=== PATIENT | female | born 1960 | race Caucasian/White ===

== ENCOUNTER 2019-01-29 21:51 | Emergency (ER) | payer BC ==
[2019-01-29 22:05] VITALS: RESP 18
[2019-01-29] MEDS ORDERED: SODIUM CHLORIDE 0.9% 500 ML IV STA (22:27)
--- NOTE | 2019-01-29 22:29 | ED ---
General Adult HPI - General Chief complaint: Abdominal Pain Stated complaint: Abd pain Time Seen by Provider: 01/29/19 22:11 Source: patient Mode of arrival: ambulatory Limitations: no limitations - History of Present Illness Initial comments: Dictation was produced using [employer] dictation software. please excuse any grammatical, word or spelling errors. Chief Complaint: 58-year-old female presents with abdominal cramping today. History of Present Illness: 50-year-old female presents with abdominal cramping since 2 PM today. Patient's been fighting a cold for the last 5 weeks. Patient states that she had a normal breakfast. Approximately 2 PM she began feeling intermittent episodes of abdominal cramping. She states that it's worse in her epigastric area. Patient complains of nausea no vomiting. She states she does have regular bowel movements. Denies any fever, chills or night sweats. Denies any exacerbating or mitigating factors. Extremity tender tonight had a couple bites over did not have an appetite The ROS documented in this emergency department record has been reviewed and confirmed by me. Those systems with pertinent positive or negative responses have been documented in the HPI. All other systems are other negative and/or noncontributory. PHYSICAL EXAM: General Impression: Alert and oriented x3, not in acute distress HEENT: Normocephalic atraumatic, extra-ocular movements intact, pupils equal and reactive to light bilaterally, mucous membranes moist. Cardiovascular: Heart regular rate and rhythm, S1&S2 audible, no murmurs, rubs or gallops Chest: Lungs clear to auscultation bilaterally, no rhonchi, no wheeze, no rales Abdomen: Hyperactive bowel sounds, diffuse abdominal tenderness worse in the epigastric area. No pain with deep palpation of left lower quadrant. Musculoskeletal: Pulses present and equal in all extremities, no peripheral edema Motor: no focal deficits noted Neurological: CN II-XII grossly intact, no focal motor or sensory deficits noted Skin: Intact with no visualized rashes Psych: Normal affect and mood ED course: 58-year-old female presents with chief complaint of abdominal cramping. Vital signs upon arrival are within acceptable limits.Laboratory evaluation obtained. CBC, cardiac panel, metabolic panel is unremarkable. Patient has potassium measurement of 5.3 with slight hemolysis. Urinalysis is unremarkable. KUB x-ray shows no acute processes. At this point there is no signs of surgical abdomen. Patient reevaluated and feels well after intravenous fluids. Patient given prescription for Bentyl and referral to gastroenterology. Patient t agreeable to disposition and plan. EKG interpretation: Ventricular rate 71, normal sinus rhythm, WV interval 1:30, QRS 68, QTC 419. No WV prolongation, no QTC prolongation, no ST or T-wave changes noted. Overall, this EKG is unremarkable - Related Data Previous Rx's Medication Instructions Recorded Dicyclomine [Bentyl] 10 mg PO TID PRN #20 capsule 01/30/19 Allergies Allergy/AdvReac Type Severity Reaction Status Date / Time No Known Allergies Allergy Verified 01/29/19 22:05 Review of Systems ROS Statement: Those systems with pertinent positive or pertinent negative responses have been documented in the HPI. ROS Other: All systems not noted in ROS Statement are negative. Past Medical History Past Medical History: Coronary Artery Disease (CAD), Chest Pain / Angina, Heart Failure, Hyperlipidemia, Hypertension History of Any Multi-Drug Resistant Organisms: None Reported Past Surgical History: Bowel Resection, Cholecystectomy, Ear Surgery, Heart Catheterization, Heart Catheterization With Stent Additional Past Surgical History / Comment(s): cyst removal, left fourth digit amputation Past Psychological History: No Psychological Hx Reported Smoking Status: Never smoker Past Alcohol Use History: None Reported Past Drug Use History: None Reported General Exam Limitations: no limitations Course Vital Signs 01/29/19 21:59 Temperature 97.7 F Pulse Rate 66 Respiratory 18 Rate Blood Pressure 124/59 O2 Sat by Pulse 96 Oximetry Medical Decision Making - Lab Data Result diagrams: 01/29/19 22:30 01/29/19 22:30 Lab Results 01/29/19 01/29/19 01/29/19 Range/Units 22:30 22:30 22:30 WBC 8.5 (3.8-10.6) k/uL RBC 4.80 (3.80-5.40) m/uL Hgb 12.5 (11.4-16.0) gm/dL Hct 36.6 (34.0-46.0) % MCV 76.3 L (80.0-100.0) fL MCH 26.0 (25.0-35.0) pg MCHC 34.1 (31.0-37.0) g/dL RDW 16.5 H (11.5-15.5) % Plt Count 176 (150-450) k/uL Neutrophils % 79 % Lymphocytes % 13 % Monocytes % 6 % Eosinophils % 1 % Basophils % 0 % Neutrophils # 6.8 (1.3-7.7) k/uL Lymphocytes # 1.1 (1.0-4.8) k/uL Monocytes # 0.5 (0-1.0) k/uL Eosinophils # 0.1 (0-0.7) k/uL Basophils # 0.0 (0-0.2) k/uL Anisocytosis Slight Microcytosis Slight PT (9.0-12.0) sec INR (<1.2) Sodium 139 (137-145) mmol/L Potassium 5.3 H (3.5-5.1) mmol/L Chloride 107 (98-107) mmol/L Carbon Dioxide 25 (22-30) mmol/L Anion Gap 7 mmol/L BUN 18 H (7-17) mg/dL Creatinine 0.89 (0.52-1.04) mg/dL Est GFR (CKD-EPI)AfAm 83 (>60 ml/min/1.73 sqM) Est GFR (CKD-EPI)NonAf 72 (>60 ml/min/1.73 sqM) Glucose 148 H (74-99) mg/dL Plasma Lactic Acid Otto 0.9 (0.7-2.0) mmol/L Calcium 8.7 (8.4-10.2) mg/dL Total Bilirubin 0.8 (0.2-1.3) mg/dL AST 33 (14-36) U/L ALT 21 (9-52) U/L Alkaline Phosphatase 86 (38-126) U/L Total Protein 6.6 (6.3-8.2) g/dL Albumin 3.3 L (3.5-5.0) g/dL Lipase 268 (23-300) U/L Urine Color Urine Appearance (Clear) Urine pH (5.0-8.0) Ur Specific [place] (1.001-1.035) Urine Protein (Negative) Urine Glucose (UA) (Negative) Urine Ketones (Negative) Urine Blood (Negative) Urine Nitrite (Negative) Urine Bilirubin (Negative) Urine Urobilinogen (<2.0) mg/dL Ur Leukocyte Esterase (Negative) Urine RBC (0-5) /hpf Urine WBC (0-5) /hpf Ur Squamous Epith Cells (0-4) /hpf Urine Bacteria (None) /hpf Hyaline Casts (0-2) /lpf Urine Mucus (None) /hpf 01/29/19 01/29/19 Range/Units 22:30 23:24 WBC (3.8-10.6) k/uL RBC (3.80-5.40) m/uL Hgb (11.4-16.0) gm/dL Hct (34.0-46.0) % MCV (80.0-100.0) fL MCH (25.0-35.0) pg MCHC (31.0-37.0) g/dL RDW (11.5-15.5) % Plt Count (150-450) k/uL Neutrophils % % Lymphocytes % % Monocytes % % Eosinophils % % Basophils % % Neutrophils # (1.3-7.7) k/uL Lymphocytes # (1.0-4.8) k/uL Monocytes # (0-1.0) k/uL Eosinophils # (0-0.7) k/uL Basophils # (0-0.2) k/uL Anisocytosis Microcytosis PT 11.0 (9.0-12.0) sec INR 1.0 (<1.2) Sodium (137-145) mmol/L Potassium (3.5-5.1) mmol/L Chloride (98-107) mmol/L Carbon Dioxide (22-30) mmol/L Anion Gap mmol/L BUN (7-17) mg/dL Creatinine (0.52-1.04) mg/dL Est GFR (CKD-EPI)AfAm (>60 ml/min/1.73 sqM) Est GFR (CKD-EPI)NonAf (>60 ml/min/1.73 sqM) Glucose (74-99) mg/dL Plasma Lactic Acid Otto (0.7-2.0) mmol/L Calcium (8.4-10.2) mg/dL Total Bilirubin (0.2-1.3) mg/dL AST (14-36) U/L ALT (9-52) U/L Alkaline Phosphatase (38-126) U/L Total Protein (6.3-8.2) g/dL Albumin (3.5-5.0) g/dL Lipase (23-300) U/L Urine Color Yellow Urine Appearance Clear (Clear) Urine pH 5.5 (5.0-8.0) Ur Specific [place] 1.019 (1.001-1.035) Urine Protein Negative (Negative) Urine Glucose (UA) Negative (Negative) Urine Ketones Negative (Negative) Urine Blood Negative (Negative) Urine Nitrite Negative (Negative) Urine Bilirubin Negative (Negative) Urine Urobilinogen <2.0 (<2.0) mg/dL Ur Leukocyte Esterase Small H (Negative) Urine RBC 1 (0-5) /hpf Urine WBC 4 (0-5) /hpf Ur Squamous Epith Cells 2 (0-4) /hpf Urine Bacteria Rare H (None) /hpf Hyaline Casts 4 H (0-2) /lpf Urine Mucus Rare H (None) /hpf Disposition Clinical Impression: Abdominal cramping Disposition: HOME SELF-CARE Condition: Good Instructions (If sedation given, give patient instructions): Acute Abdominal Pain (ED) Prescriptions: Dicyclomine [Bentyl] 10 mg PO TID PRN #20 capsule PRN Reason: abdominal cramps Is patient prescribed a controlled substance at d/c from ED?: No Referrals: Filemon Dunlap MD [STAFF PHYSICIAN] - 1-2 days Time of Disposition: 00:12
--- NOTE | 2019-01-29 23:01 | XR ---
EXAM: XR Abdomen, 1 View CLINICAL HISTORY: ITS.REASON XR Reason: abdominal pain TECHNIQUE: Frontal supine view of the abdomen/pelvis. COMPARISON: No relevant prior studies available. IMPRESSION: No bowel obstruction. Paucity of bowel gas overall. No free air.
[2019-01-29 23:06] LABS: Anisocytosis Slight; Basophils % (A) 0 %; Eosinophils # (A) 0.1 k/uL (0-0.7); Eosinophils % (A) 1 %; HCT 36.6 % (34.0-46.0); HGB 12.5 gm/dL (11.4-16.0); Lymphocytes # (A) 1.1 k/uL (1.0-4.8); Lymphocytes % (A) 13 %; MCHC 34.1 g/dL (31.0-37.0); MCV 76.3 fL (80.0-100.0); Mean Platelet Volume 10.4; Microcytosis Slight; Monocytes # (A) 0.5 k/uL (0-1.0); Monocytes % (A) 6 %; Neutrophils # (A) 6.8 k/uL (1.3-7.7); Neutrophils % (A) 79 %; Platelet Count 176 k/uL (150-450); RDW 16.5 % (11.5-15.5); WBC 8.5 k/uL (3.8-10.6)
[2019-01-29 23:14] LABS: Calcium 8.7 mg/dL (8.4-10.2); Total Bilirubin 0.8 mg/dL (0.2-1.3)
[2019-01-29 23:20] LABS: Albumin 3.3 g/dL (3.5-5.0); Potassium 5.3 mmol/L (3.5-5.1); Total Protein 6.6 g/dL (6.3-8.2)
[2019-01-29 23:48] LABS: Appearance,Urine Clear (Clear); Bacteria,Urine Rare /hpf; Bilirubin,Urine Negative (Negative); Blood,Urine Negative (Negative); Color,Urine Yellow; Glucose,Urine (UA) Negative (Negative); Hyaline Casts,Urine 4 /lpf (0-2); Ketones,Urine Negative (Negative); Leukocyte Esterase,Urine Small (Negative); Mucus,Urine Rare /hpf; Nitrite,Urine Negative (Negative); PH, Urine 5.5 (5.0-8.0); Protein,Urine Negative (Negative); RBC,Urine 1 /hpf (0-5); Specific Gravity,Urine 1.019 (1.001-1.035); Squamous Epithelial Cell,Urine 2 /hpf (0-4); Urobilinogen,Urine <2.0 mg/dL (<2.0); WBC,Urine 4 /hpf (0-5)
[2019-01-30 00:44] VITALS: BP 143/88; PULSE 78; TEMP 98.9
== END 2019-01-30 00:44 | disposition home or self-care (01) ==
LOC: EC 21:51
DX: R10.9 Unspecified abdominal pain (principal); R11.0 Nausea; I25.10 Atherosclerotic heart disease of native coronary artery without angina pectoris; Z90.49 Acquired absence of other specified parts of digestive tract; Z95.5 Presence of coronary angioplasty implant and graft; Z98.890 Other specified postprocedural states
CPT/HCPCS: 36415; 74018; 80053; 81001; 83605; 83690; 85025; 85610; 93005; 96360; 99284

== ENCOUNTER 2021-05-30 12:11 | Emergency (ER) | payer BC ==
[2021-05-30 12:15] VITALS: BP 157/87; PULSE 62; RESP 18; TEMP 97.4
[2021-05-30] MEDS ORDERED: LIDOCAINE 1% INJ 10MG/ML (20 ML MDV) SQ STA (12:53)
[2021-05-30] MEDS ORDERED: GELATIN SPONGE,ABSORB (LARGE) 1 EACH SPONGE TOPICAL STA (12:54)
[2021-05-30] MEDS ORDERED: DIPH,PERTUS(ACELL)TETVAC-LF 0.5 ML VIAL IM ONE (12:54)
--- NOTE | 2021-05-30 14:56 | ED ---
Wound/Laceration HPI - General Chief Complaint: Wound/Laceration Stated Complaint: leg injury Time Seen by Provider: 05/30/21 12:32 Source: patient, RN notes reviewed Mode of arrival: wheelchair Limitations: physical limitation - History of Present Illness Initial Comments: Patient is a 60-year-old female that presents to the emergency room with a left sorensen laceration from a cement block falling on her. She notes that she is not up-to-date on her tetanus vaccine. She notes that she is bleeding pretty well. She notes that she tried rinsing off at home in the bath tub but it kept bleeding so he can emergency room to get. Patient did not appear to be any distress while sitting up in bed during exam and interview. She denied any other issues or complaints at this time. She denied any chest pain shortness of breath headache nausea vomiting diarrhea constipation fever fatigue chills. - Related Data Previous Rx's Medication Instructions Recorded Dicyclomine [Bentyl] 10 mg PO TID PRN #20 capsule 01/30/19 Cephalexin [Keflex] 500 mg PO Q6HR #40 cap 05/30/21 Allergies Allergy/AdvReac Type Severity Reaction Status Date / Time No Known Allergies Allergy Verified 05/30/21 12:15 Review of Systems ROS Statement: Those systems with pertinent positive or pertinent negative responses have been documented in the HPI. ROS Other: All systems not noted in ROS Statement are negative. Past Medical History Past Medical History: Coronary Artery Disease (CAD), Chest Pain / Angina, Heart Failure, Hyperlipidemia, Hypertension History of Any Multi-Drug Resistant Organisms: None Reported Past Surgical History: Bowel Resection, Cholecystectomy, Ear Surgery, Heart Catheterization, Heart Catheterization With Stent Additional Past Surgical History / Comment(s): cyst removal, left fourth digit amputation Past Psychological History: No Psychological Hx Reported Smoking Status: Never smoker Past Alcohol Use History: None Reported Past Drug Use History: None Reported General Exam Limitations: physical limitation General appearance: alert, in no apparent distress Head exam: Present: atraumatic, normocephalic, normal inspection Eye exam: Present: normal appearance, PERRL, EOMI. Absent: scleral icterus, conjunctival injection, periorbital swelling Neck exam: Present: normal inspection Respiratory exam: Present: normal lung sounds bilaterally. Absent: respiratory distress, wheezes, rales, rhonchi, stridor Cardiovascular Exam: Present: regular rate, normal rhythm, normal heart sounds. Absent: systolic murmur, diastolic murmur, rubs, gallop, clicks Extremities exam: Present: normal inspection, full ROM, normal capillary refill, other (Large laceration/flap to left sorensen measuring approximately 20 cm. Actively bleeding.). Absent: tenderness, pedal edema, joint swelling, calf tenderness Neurological exam: Present: alert, oriented X3 Psychiatric exam: Present: normal affect, normal mood Skin exam: Present: warm, dry, intact, normal color. Absent: rash Course Vital Signs 05/30/21 12:13 Temperature 97.4 F L Pulse Rate 62 Respiratory 18 Rate Blood Pressure 157/87 O2 Sat by Pulse 98 Oximetry Procedures - Laceration Laceration #1 Consent Obtained: verbal consent Indication: laceration Site: lower extremity (Left sorensen) Size (cm): 20 Description: linear, flap Depth: simple, single layer Anesthetic Used: lidocaine 1% Anesthesia Technique: local infiltration Amount (mls): 18 Pre-repair: irrigated extensively Type of Sutures: nylon Size of Sutures: 4-0 Number of Sutures: 19 Technique: simple, interrupted Complications: bleeding Patient Tolerated Procedure: well, no complications Medical Decision Making - Medical Decision Making 60-year-old female with a left sorensen laceration. Tetanus vaccine updated. Lidocaine ordered. Patient tolerated procedure well. Due to skin integrity issues sutures and Steri-Strips were used to close the wound as well as possible. Case discussed with Dr. Quiroga, patient can discharge home with follow-up primary care. Disposition Clinical Impression: Laceration Disposition: HOME SELF-CARE Instructions (If sedation given, give patient instructions): Laceration (ED) Additional Instructions: Please return to the Emergency Department if symptoms worsen or any other concerns. Keep area clean and dry. May wash with warm water gentle soap tomorrow. Please return in 10 days to have sutures removed. Keep clean dry dressings on. Take antibiotics as prescribed until complete. Follow-up with primary care in the next several days. Is patient prescribed a controlled substance at d/c from ED?: No Referrals: Nayeli Cavazos DO [Primary Care Provider] - 1-2 days Time of Disposition: 14:55
== END 2021-05-30 15:00 | disposition home or self-care (01) ==
LOC: EC 12:11
DX: S81.812A Laceration without foreign body, left lower leg, initial encounter (principal); I11.0 Hypertensive heart disease with heart failure; I50.9 Heart failure, unspecified; Z23 Encounter for immunization; W20.8XXA Other cause of strike by thrown, projected or falling object, initial encounter
CPT/HCPCS: 90715; 99282; 90471; 12035; J2001

== ENCOUNTER 2021-08-20 17:34 | Observation (INO) | payer BC ==
[2021-08-20] MEDS ORDERED: ACETAMINOPHEN TAB 500 MG TAB PO STA (18:57)
--- NOTE | 2021-08-20 19:09 | XR ---
EXAMINATION TYPE: XR chest 1V portable DATE OF EXAM: 08/20/2021 COMPARISON: NONE HISTORY: Hypoxemia TECHNIQUE: Single view FINDINGS: Heart and mediastinum are normal. Lungs are clear. Diaphragm is normal. Bony thorax appears intact. IMPRESSION: Normal chest.
--- NOTE | 2021-08-20 19:23 | ED ---
General Adult HPI - General Chief complaint: Shortness of Breath Stated complaint: Fever, chills Sent by PCP Time Seen by Provider: 08/20/21 18:31 Source: patient Mode of arrival: ambulatory Limitations: no limitations - History of Present Illness Initial comments: Dictation was produced using [employer] dictation software. please excuse any grammatical, word or spelling errors. Chief Complaint: 60-year-old female sent in by PCP for feelings of generalized malaise History of Present Illness: This 60-year-old female for the last couple days she's been having worsening weakness, generalized malaise. Today she started having runny nose and mild sore throat. Denies any cough. She has been having some night sweats. No chest pain. She has some mild shortness of breath. Denies any dysuria. She has a chronic wound on her left lower extremity that appears stable. No urinary symptoms. No abdominal pain. Mild nausea. Poor appetite but no vomiting. Patient received a [employer] coronavirus vaccine back in January. The ROS documented in this emergency department record has been reviewed and confirmed by me. Those systems with pertinent positive or negative responses have been documented in the HPI. All other systems are other negative and/or noncontributory. PHYSICAL EXAM: General Impression: Alert and oriented x3, not in acute distress HEENT: Normocephalic atraumatic, extra-ocular movements intact, pupils equal and reactive to light bilaterally, mucous membranes moist. Cardiovascular: Heart regular rate and rhythm Chest: Able to complete full sentences, no retractions, no tachypnea Abdomen: abdomen soft, non-tender, non-distended, no organomegaly Musculoskeletal: Pulses present and equal in all extremities, no peripheral edema Motor: no focal deficits noted Neurological: CN II-XII grossly intact, no focal motor or sensory deficits noted Skin: Intact with no visualized rashes Psych: Normal affect and mood ED course: 60-year-old female presents to the emergency department for generalized malaise and constitutional symptoms. Signs upon arrival shows temperature 101.0, oxygen saturation of 80% on room air. Rest of vital signs within acceptable limits. EKG interpretation: Ventricular rate 70, normal sinus rhythm,. Interval 162, QRS 60, QTC 423. No [place] prolongation, no QTC prolongation, no ST or T-wave changes noted. Overall, this EKG is unremarkable Laboratory evaluation obtained. CBC unremarkable. No leukocytosis. I [place] panel shows sodium of 127. Elevated renal markers. Elevated glucose. Calcium 8.2. 4 panel viral PCR is negative for influenza, RSV or coronavirus. Chest x- ray is nonacute. Patient is reevaluated at the bedside and had low blood pressures with systolic measuring 80s. Patient was placed in Trendelenburg and blood pressure was repeated with improvement of pressure. Her lab and increase in blood pressure with Trendelenburg position suggest that patient has a component of dehydration. She may intravenous fluids with improvement of symptoms. Patient has a fever with no obvious source. Pending urine studies. Patient will be admitted to [facility] for further hydration medical monitored. - Related Data Home Medications Medication Instructions Recorded Confirmed Aspirin EC [Ecotrin] 325 mg PO DAILY 08/20/21 08/20/21 Clopidogrel [Plavix] 75 mg PO DAILY 08/20/21 08/20/21 Furosemide [Lasix] 40 mg PO Q48H 08/20/21 08/20/21 Losartan [Cozaar] 25 mg PO HS 08/20/21 08/20/21 Metoprolol Tartrate [Lopressor] 50 mg PO BID 08/20/21 08/20/21 Potassium Chloride ER [K-Dur 20] 20 meq PO DAILY 08/20/21 08/20/21 Simvastatin [Zocor] 80 mg PO HS 08/20/21 08/20/21 allopurinoL [Zyloprim] 100 mg PO DAILY 08/20/21 08/20/21 Allergies Allergy/AdvReac Type Severity Reaction Status Date / Time No Known Allergies Allergy Verified 08/20/21 20:07 Review of Systems ROS Statement: Those systems with pertinent positive or pertinent negative responses have been documented in the HPI. ROS Other: All systems not noted in ROS Statement are negative. Past Medical History Past Medical History: Coronary Artery Disease (CAD), Chest Pain / Angina, Heart Failure, Hyperlipidemia, Hypertension History of Any Multi-Drug Resistant Organisms: None Reported Past Surgical History: Bowel Resection, Cholecystectomy, Ear Surgery, Heart Catheterization, Heart Catheterization With Stent Additional Past Surgical History / Comment(s): cyst removal, left fourth digit amputation Past Psychological History: No Psychological Hx Reported Smoking Status: Never smoker Past Alcohol Use History: None Reported Past Drug Use History: None Reported General Exam Limitations: no limitations Course Vital Signs 08/20/21 08/20/21 08/20/21 18:23 18:55 19:27 Temperature 98.9 F 101.0 F H Pulse Rate 89 Respiratory 20 18 Rate Blood Pressure 112/66 O2 Sat by Pulse 88 L Oximetry 08/20/21 20:55 Temperature 97.9 F Pulse Rate 76 Respiratory 18 Rate Blood Pressure 97/43 O2 Sat by Pulse 99 Oximetry Medical Decision Making - Lab Data Result diagrams: 08/20/21 19:33 08/20/21 19:33 Lab Results 08/20/21 08/20/21 08/20/21 Range/Units 18:53 19:33 19:33 WBC 5.7 (3.8-10.6) k/uL RBC 5.03 (3.80-5.40) m/uL Hgb 12.8 (11.4-16.0) gm/dL Hct 38.9 (34.0-46.0) % MCV 77.3 L (80.0-100.0) fL MCH 25.4 (25.0-35.0) pg MCHC 32.9 (31.0-37.0) g/dL RDW 14.2 (11.5-15.5) % Plt Count 140 L (150-450) k/uL MPV 9.3 Neutrophils % 91 % Lymphocytes % 5 % Monocytes % 2 % Eosinophils % 1 % Basophils % 0 % Neutrophils # 5.3 (1.3-7.7) k/uL Lymphocytes # 0.3 L (1.0-4.8) k/uL Monocytes # 0.1 (0-1.0) k/uL Eosinophils # 0.0 (0-0.7) k/uL Basophils # 0.0 (0-0.2) k/uL Sodium 127 L (137-145) mmol/L Potassium 4.1 (3.5-5.1) mmol/L Chloride 95 L (98-107) mmol/L Carbon Dioxide 22 (22-30) mmol/L Anion Gap 10 mmol/L BUN 26 H (7-17) mg/dL Creatinine 1.32 H (0.52-1.04) mg/dL Est GFR (CKD-EPI)AfAm 51 (>60 ml/min/1.73 sqM) Est GFR (CKD-EPI)NonAf 44 (>60 ml/min/1.73 sqM) Glucose 235 H (74-99) mg/dL POC Glucose (mg/dL) (75-99) mg/dL POC Glu Lead Technical Architect ID Calcium 8.2 L (8.4-10.2) mg/dL Influenza Type A (PCR) Not Detected (Not Detectd) Influenza Type B (PCR) Not Detected (Not Detectd) RSV (PCR) Not Detected (Not Detectd) SARS-CoV-2 (PCR) Not Detected (Not Detectd) 08/20/21 Range/Units 21:06 WBC (3.8-10.6) k/uL RBC (3.80-5.40) m/uL Hgb (11.4-16.0) gm/dL Hct (34.0-46.0) % MCV (80.0-100.0) fL MCH (25.0-35.0) pg MCHC (31.0-37.0) g/dL RDW (11.5-15.5) % Plt Count (150-450) k/uL MPV Neutrophils % % Lymphocytes % % Monocytes % % Eosinophils % % Basophils % % Neutrophils # (1.3-7.7) k/uL Lymphocytes # (1.0-4.8) k/uL Monocytes # (0-1.0) k/uL Eosinophils # (0-0.7) k/uL Basophils # (0-0.2) k/uL Sodium (137-145) mmol/L Potassium (3.5-5.1) mmol/L Chloride (98-107) mmol/L Carbon Dioxide (22-30) mmol/L Anion Gap mmol/L BUN (7-17) mg/dL Creatinine (0.52-1.04) mg/dL Est GFR (CKD-EPI)AfAm (>60 ml/min/1.73 sqM) Est GFR (CKD-EPI)NonAf (>60 ml/min/1.73 sqM) Glucose (74-99) mg/dL POC Glucose (mg/dL) 217 H (75-99) mg/dL POC Glu Lead Technical Architect ID Sam, Angle Calcium (8.4-10.2) mg/dL Influenza Type A (PCR) (Not Detectd) Influenza Type B (PCR) (Not Detectd) RSV (PCR) (Not Detectd) SARS-CoV-2 (PCR) (Not Detectd) Disposition Clinical Impression: Dehydration, Hypotension Disposition: ADMITTED IP TO THIS HOSP Condition: Fair Referrals: Nayeli Cavazos DO [Primary Care Provider] - 1-2 days
[2021-08-20 19:37] LABS: Basophils % (A) 0 %; Eosinophils % (A) 1 %; HCT 38.9 % (34.0-46.0); HGB 12.8 gm/dL (11.4-16.0); Lymphocytes # (A) 0.3 k/uL (1.0-4.8); Lymphocytes % (A) 5 %; MCH 25.4 pg (25.0-35.0); MCHC 32.9 g/dL (31.0-37.0); MCV 77.3 fL (80.0-100.0); Mean Platelet Volume 9.3; Monocytes # (A) 0.1 k/uL (0-1.0); Monocytes % (A) 2 %; Neutrophils # (A) 5.3 k/uL (1.3-7.7); Neutrophils % (A) 91 %; Platelet Count 140 k/uL (150-450); RBC 5.03 m/uL (3.80-5.40); RDW 14.2 % (11.5-15.5); WBC 5.7 k/uL (3.8-10.6)
[2021-08-20 19:47] LABS: Calcium 8.2 mg/dL (8.4-10.2); Potassium 4.1 mmol/L (3.5-5.1)
[2021-08-20] MEDS ORDERED: SODIUM CHLORIDE 0.9% 1,000 ML IV STA (21:01)
[2021-08-20 21:09] LABS: Glucose,Whole Blood 217 mg/dL (75-99)
[2021-08-20] MEDS ORDERED: NALOXONE 0.4 MG/ML 1 ML VIAL IV PRN (21:51)
[2021-08-20] MEDS ORDERED: ONDANSETRON 4 MG/2 ML VIAL IVP PRN (21:51)
[2021-08-20] MEDS: SODIUM CHLORIDE 0.9% 1,000 ML IV SCH (22:41)
[2021-08-21 00:27] LABS: Amorphous Sediment,Urine Rare /hpf; Appearance,Urine Cloudy (Clear); Bilirubin,Urine Negative (Negative); Blood,Urine Negative (Negative); Color,Urine Yellow; Glucose,Urine (UA) Negative (Negative); Ketones,Urine Negative (Negative); Leukocyte Esterase,Urine Negative (Negative); Mucus,Urine Rare /hpf; Nitrite,Urine Negative (Negative); PH, Urine 5.5 (5.0-8.0); Protein,Urine Trace (Negative); RBC,Urine 1 /hpf (0-5); Specific Gravity,Urine 1.018 (1.001-1.035); Squamous Epithelial Cell,Urine 1 /hpf (0-4); WBC,Urine 6 /hpf (0-5)
[2021-08-21] MEDS ORDERED: ACETAMINOPHEN TAB 325 MG TAB PO PRN (04:00)
--- NOTE | 2021-08-21 04:09 | P.HPIM ---
History of Present Illness H&P Date: 08/21/21 Chief Complaint: Generalized weakness 60-year-old female with history of coronary artery disease status post stents, hypertension, prediabetic Patient comes in due to 4-5 day history of feeling progressively weak decreased by mouth intake for appetite diffuse body aches and fever and diarrhea denies any nausea vomiting. Patient denies any urinary symptoms denies any hematuria denies any GI bleeding denies any coughing denies any respiratory symptoms denies any runny no sore throat denies any loss of smell or taste sensation denies any chest pain denies any syncope or passing out however she was feeling extremely tired today almost passing out decided to come the hospital for evaluation. She is vaccinated with J&J vaccine against Covid back in January. She also adds that she was at a wedding about 10 days ago and a lot of people were and vaccinated during that wedding however she is not aware of anyone who is sick Patient has a wound over her left leg this happened about 2 months and a half ago was due to an accidental injury came to the hospital it was initially sutured however this can and sloughed off and ended up with a big open wounds she never seeks medical attention after that she was cleaning it with chlorhexidine the wound does not look infected however that's large about 5 x 5 cm with dried granulomatous tissue on top patient denies any drainage or discharge In the ED initial workup was negative CBC showed no leukocytosis Covid was ne gative for influenza and RSV both negative chest x-ray no acute pathology However she had low blood pressure upon presentation E ED doc has to put her in Trendelenburg position to improve her blood pressure she was given some IV fluids she was also found to have acute kidney injury she was admitted for close monitoring Cultures were obtained however no suspicious of bacterial infection at this time no antibiotics were given Patient claims that she had 3 tests for Covid done 2 of them are negative and one of them she did not receive results yet Otherwise she denies any recent traveling denies any hospitalization denies any intramuscular injections or IV injections recently denies any dental issues Review of Systems Pertinent positives as noted in HPI. All other systems were reviewed and are negative Past Medical History Past Medical History: Coronary Artery Disease (CAD), Chest Pain / Angina, Heart Failure, Hyperlipidemia, Hypertension History of Any Multi-Drug Resistant Organisms: None Reported Past Surgical History: Bowel Resection, Cholecystectomy, Ear Surgery, Heart Catheterization, Heart Catheterization With Stent Additional Past Surgical History / Comment(s): cyst removal, left fourth digit amputation Past Anesthesia/Blood Transfusion Reactions: No Reported Reaction Date of Last Stent Placement:: 2004 Past Psychological History: No Psychological Hx Reported Smoking Status: Never smoker Past Alcohol Use History: None Reported Past Drug Use History: None Reported Medications and Allergies Home Medications Medication Instructions Recorded Confirmed Type Aspirin EC [Ecotrin] 325 mg PO DAILY 08/20/21 08/20/21 History Clopidogrel [Plavix] 75 mg PO DAILY 08/20/21 08/20/21 History Furosemide [Lasix] 40 mg PO Q48H 08/20/21 08/20/21 History Losartan [Cozaar] 25 mg PO HS 08/20/21 08/20/21 History Metoprolol Tartrate [Lopressor] 50 mg PO BID 08/20/21 08/20/21 History Potassium Chloride ER [K-Dur 20] 20 meq PO DAILY 08/20/21 08/20/21 History Simvastatin [Zocor] 80 mg PO HS 08/20/21 08/20/21 History allopurinoL [Zyloprim] 100 mg PO DAILY 08/20/21 08/20/21 History Allergies Allergy/AdvReac Type Severity Reaction Status Date / Time No Known Allergies Allergy Verified 08/20/21 20:07 Physical Exam Vitals: Vital Signs Temp Pulse Pulse Resp BP BP Pulse Ox 08/21/21 00:17 97.4 F L 71 18 101/61 100 08/20/21 20:55 97.9 F 76 18 97/43 99 08/20/21 19:27 18 08/20/21 18:55 101.0 F H 08/20/21 18:23 98.9 F 89 20 112/66 88 L Intake and Output 08/20/21 08/20/21 08/21/21 14:59 22:59 06:59 Other: Weight 109.769 kg 109.769 kg Constitutional: No acute distress, conversant, pleasant Eyes: Anicteric sclerae, moist conjunctiva, Pupils equal round reactive to light ENMT: NC/AT Oropharynx clear, no erythema, or exudates Neck: Supple, FROM, no masses, or JVD No carotid bruits No thyromegaly Lungs: Clear to auscultation Clear to percussion Normal respiratory effort, no accessory muscle use Cardiovascular: Heart regular in rate and rhythm, No murmurs, gallops, or rubs No peripheral edema Abdominal: Soft Nontender, no guarding, rebound or rigidity Abdomen moving with respiration Normoactive bowel sounds No hepatomegaly, No splenomegaly No palpable mass No abdominal wall hernia noted Skin: Patient has healing wound over her lower third of the left leg anteriorly no surrounding erythema or induration no tenderness to palpation no drainage wound is covered with dry granulomatous tissue Extremities: No digital cyanosis No clubbing Pedal pulses intact and symmetrical Radial pulses intact and symmetrical No calf tenderness Psychiatric: Alert and oriented to person, place and time Appropriate affect fair judgement Neuro Muscles Strength 5/5 in all 4 extremities Sensation to light touch grossly present throughout Cranial nerves II-XII grossly intact No focal sensory deficits Lymphatics: no palpable cervical or supraclavicular , or inguinal lymph nodes Results CBC & Chem 7: 08/20/21 19:33 08/20/21 19:33 Labs: Abnormal Lab Results - Last 24 Hours (Table) 08/20/21 08/20/21 08/20/21 Range/Units 19:33 19:33 21:06 MCV 77.3 L (80.0-100.0) fL Plt Count 140 L (150-450) k/uL Lymphocytes # 0.3 L (1.0-4.8) k/uL Sodium 127 L (137-145) mmol/L Chloride 95 L (98-107) mmol/L BUN 26 H (7-17) mg/dL Creatinine 1.32 H (0.52-1.04) mg/dL Glucose 235 H (74-99) mg/dL POC Glucose (mg/dL) 217 H (75-99) mg/dL Calcium 8.2 L (8.4-10.2) mg/dL Urine Appearance (Clear) Urine Protein (Negative) Urine WBC (0-5) /hpf Amorphous Sediment (None) /hpf Urine Mucus (None) /hpf 08/20/21 Range/Units 23:10 MCV (80.0-100.0) fL Plt Count (150-450) k/uL Lymphocytes # (1.0-4.8) k/uL Sodium (137-145) mmol/L Chloride (98-107) mmol/L BUN (7-17) mg/dL Creatinine (0.52-1.04) mg/dL Glucose (74-99) mg/dL POC Glucose (mg/dL) (75-99) mg/dL Calcium (8.4-10.2) mg/dL Urine Appearance Cloudy H (Clear) Urine Protein Trace H (Negative) Urine WBC 6 H (0-5) /hpf Amorphous Sediment Rare H (None) /hpf Urine Mucus Rare H (None) /hpf Thrombosis Risk Factor Assmnt - Choose All That Apply Each Factor Represents 1 point: Age 41-60 years, Obesity (BMI >25) Thrombosis Risk Factor Assessment Total Risk Factor Score: 2 Thrombosis Risk Factor Assessment Level: Low Risk Assessment and Plan Assessment: Fevers diffuse body aches patient behaving like a viral syndrome, acute gastroenteritis viral infection dehydration and acute kidney injury, secondary to poor by mouth intake Hypovolemic hypotension Plan Respiratory virus panels negative No leukocytosis Supportive care IV fluid hydration No antibiotics given at this time Monitor renal function monitor urine output avoid nephrotoxic meds Tylenol for fever Monitor vital signs Hold antihypertensive meds Chest x-ray negative Follow-up cultures, urine analysis unremarkable Chronic conditions Hypertension, currently hypotensive as above, blood pressure meds on hold Prediabetes, monitor blood glucose History of CAD status post stents resume cardiac meds statin and aspirin and Plavix 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
[2021-08-21] MEDS: SODIUM CHLORIDE 0.9% 1,000 ML IV SCH ×3 (05:18→17:57)
[2021-08-21 05:56] LABS: Basophils % (A) 0 %; Eosinophils % (A) 0 %; HCT 33.4 % (34.0-46.0); HGB 11.8 gm/dL (11.4-16.0); Lymphocytes # (A) 0.2 k/uL (1.0-4.8); Lymphocytes % (A) 6 %; MCH 26.7 pg (25.0-35.0); MCHC 35.4 g/dL (31.0-37.0); MCV 75.5 fL (80.0-100.0); Mean Platelet Volume 9.5; Microcytosis Slight; Monocytes # (A) 0.1 k/uL (0-1.0); Monocytes % (A) 4 %; Neutrophils # (A) 2.3 k/uL (1.3-7.7); Neutrophils % (A) 90 %; Platelet Count 104 k/uL (150-450); Poikilocytosis Slight; RBC 4.42 m/uL (3.80-5.40); RDW 14.5 % (11.5-15.5); WBC 2.6 k/uL (3.8-10.6)
[2021-08-21 06:03] LABS: ALT 61 U/L (4-34); AST 150 U/L (14-36); African American GFR (CKD) 68 (>60 ml/min/1.73 sqM); Albumin 2.5 g/dL (3.5-5.0); Albumin/Globulin Ratio 0.8; Alkaline Phosphatase 88 U/L (38-126); Anion Gap 6 mmol/L; Blood Urea Nitrogen 25 mg/dL (7-17); Calcium 7.7 mg/dL (8.4-10.2); Carbon Dioxide 22 mmol/L (22-30); Chloride 99 mmol/L (98-107); Glucose 175 mg/dL (74-99); Non-African American GFR(CKD) 59 (>60 ml/min/1.73 sqM); Potassium 3.6 mmol/L (3.5-5.1); Sodium 127 mmol/L (137-145); Total Bilirubin 1.6 mg/dL (0.2-1.3); Total Protein 5.5 g/dL (6.3-8.2)
[2021-08-21] MEDS: ASPIRIN 325 MG TAB PO SCH (08:21)
[2021-08-21] MEDS: CLOPIDOGREL 75 MG TAB PO SCH (08:21)
[2021-08-21] MEDS: METOPROLOL TARTRATE 50 MG TAB PO SCH ×2 (13:26→20:23)
--- NOTE | 2021-08-21 13:33 | P.PN ---
Subjective Patient reports feeling nauseated this area and she had some liquid causing a lot of nausea but no vomiting. She is passing gas. Objective - Vital Signs Vital signs: Vital Signs Temp 97.7 F 08/21/21 07:31 Pulse 74 08/21/21 07:31 Resp 17 08/21/21 07:31 BP 102/67 08/21/21 07:31 Pulse Ox 97 08/21/21 07:31 Intake & Output 08/20/21 08/21/21 08/21/21 18:59 06:59 18:59 Intake Total 300 180 Balance 300 180 Weight 109.769 kg 109.769 kg Intake: Oral 300 180 Other: # Voids 2 - Exam General: The patient is awake and alert, in no distress Eye: there is normal conjunctiva bilaterally. Neck: The neck is supple, there is no JVD. Cardiovascular: Normal S1-S2, no S3-S4, no murmurs. Respiratory: Lungs clear to auscultation bilaterally Gastrointestinal: Abdomen is soft, nontender Musculoskeletal: There is no pedal edema. Neurological:. Speech is normal. Skin: Skin is warm and dry - Labs CBC & Chem 7: 08/21/21 05:24 08/21/21 05:24 Labs: Abnormal Lab Results - Last 24 Hours (Table) 08/20/21 08/20/21 08/20/21 Range/Units 19:33 19:33 21:06 WBC (3.8-10.6) k/uL Hct (34.0-46.0) % MCV 77.3 L (80.0-100.0) fL Plt Count 140 L (150-450) k/uL Lymphocytes # 0.3 L (1.0-4.8) k/uL Sodium 127 L (137-145) mmol/L Chloride 95 L (98-107) mmol/L BUN 26 H (7-17) mg/dL Creatinine 1.32 H (0.52-1.04) mg/dL Glucose 235 H (74-99) mg/dL POC Glucose (mg/dL) 217 H (75-99) mg/dL Calcium 8.2 L (8.4-10.2) mg/dL Total Bilirubin (0.2-1.3) mg/dL AST (14-36) U/L ALT (4-34) U/L Total Protein (6.3-8.2) g/dL Albumin (3.5-5.0) g/dL Urine Appearance (Clear) Urine Protein (Negative) Urine WBC (0-5) /hpf Amorphous Sediment (None) /hpf Urine Mucus (None) /hpf 08/20/21 08/21/21 08/21/21 Range/Units 23:10 05:24 05:24 WBC 2.6 L (3.8-10.6) k/uL Hct 33.4 L (34.0-46.0) % MCV 75.5 L (80.0-100.0) fL Plt Count 104 L (150-450) k/uL Lymphocytes # 0.2 L (1.0-4.8) k/uL Sodium 127 L (137-145) mmol/L Chloride (98-107) mmol/L BUN 25 H (7-17) mg/dL Creatinine (0.52-1.04) mg/dL Glucose 175 H (74-99) mg/dL POC Glucose (mg/dL) (75-99) mg/dL Calcium 7.7 L (8.4-10.2) mg/dL Total Bilirubin 1.6 H (0.2-1.3) mg/dL AST 150 H (14-36) U/L ALT 61 H (4-34) U/L Total Protein 5.5 L (6.3-8.2) g/dL Albumin 2.5 L (3.5-5.0) g/dL Urine Appearance Cloudy H (Clear) Urine Protein Trace H (Negative) Urine WBC 6 H (0-5) /hpf Amorphous Sediment Rare H (None) /hpf Urine Mucus Rare H (None) /hpf Assessment and Plan Assessment: This is a 60-year-old female with past medical history noted below that presented to the emergency room with worsening nausea and decreased appetite. Patient was also having diffuse body ache and fever. She was evaluated in the ER and admitted to the hospital for further management. 1. Acute viral gastritis 2. Hypovolemic hyponatremia 3. Acute viral syndrome 4. Dehydration 5. Chronic medical problems: Essential hypertension, prediabetes, history of coronary artery disease with prior stent placement Today, I reviewed her medication list and lab work results Sodium level still 127 with no significant improvement, continue IV fluid hydration with normal saline at 75 mL per hour SHANDA RNEbonie, and influenza screen negative Continue supportive care otherwise. Anti-emetic as needed. Repeat lab work in the morning.
[2021-08-21] MEDS ORDERED: ATORVASTATIN 40 MG TAB PO SCH (21:00)
[2021-08-22] MEDS: SODIUM CHLORIDE 0.9% 1,000 ML IV SCH (02:59)
[2021-08-22 07:48] VITALS: PULSE 67; RESP 16; TEMP 98.1
[2021-08-22] MEDS: ASPIRIN 325 MG TAB PO SCH (08:39)
[2021-08-22] MEDS: CLOPIDOGREL 75 MG TAB PO SCH (08:39)
[2021-08-22 09:29] LABS: African American GFR (CKD) 84 (>60 ml/min/1.73 sqM); Anion Gap 6 mmol/L; Blood Urea Nitrogen 18 mg/dL (7-17); Calcium 8.1 mg/dL (8.4-10.2); Carbon Dioxide 24 mmol/L (22-30); Chloride 103 mmol/L (98-107); Glucose 148 mg/dL (74-99); Non-African American GFR(CKD) 73 (>60 ml/min/1.73 sqM); Potassium 3.7 mmol/L (3.5-5.1); Sodium 133 mmol/L (137-145)
[2021-08-22] MEDS: METOPROLOL TARTRATE 50 MG TAB PO SCH (10:30)
[2021-08-22 10:50] VITALS: BP 114/68
--- NOTE | 2021-08-22 10:55 | P.DS ---
Providers Date of admission: 08/21/21 11:19 Expected date of discharge: 08/22/21 Attending physician: Giorgi Manning MD Primary care physician: Nayeli Cavazos Hospital Course: This is a 60-year-old female with past medical history noted below that presented to the emergency room with worsening nausea and decreased appetite. Patient was also having diffuse body ache and fever. She was evaluated in the ER and admitted to the hospital for further management. 1. Acute viral gastritis 2. Hypovolemic hyponatremia 3. Acute viral syndrome 4. Dehydration 5. Chronic medical problems: Essential hypertension, prediabetes, history of coronary artery disease with prior stent placement Patient's overall condition improved significantly throughout her hospital stay. On the day of discharge she was able to tolerate regular diet with no difficulty COVID-19, RNC, and influenza screen negative Discontinue home dose of Lasix, discontinue simvastatin 80 mg daily at home and start Lipitor 40 mg daily Patient will be discharged home in a stable condition Physical exam: General: The patient is awake and alert, in no distress Eye: there is normal conjunctiva bilaterally. Neck: The neck is supple, there is no JVD. Cardiovascular: Normal S1-S2, no S3-S4, no murmurs. Respiratory: Lungs clear to auscultation bilaterally Gastrointestinal: Abdomen is soft, nontender Musculoskeletal: There is no pedal edema. Neurological:. Speech is normal. Skin: Skin is warm and dry Patient Condition at Discharge: Fair Plan - Discharge Summary Discharge Rx Participant: Yes New Discharge Prescriptions: New Atorvastatin [Lipitor] 40 mg PO HS #30 tab Continue Losartan [Cozaar] 25 mg PO HS Clopidogrel [Plavix] 75 mg PO DAILY Aspirin EC [Ecotrin] 325 mg PO DAILY allopurinoL [Zyloprim] 100 mg PO DAILY Metoprolol Tartrate [Lopressor] 50 mg PO BID Discontinued Simvastatin [Zocor] 80 mg PO HS Potassium Chloride ER [K-Dur 20] 20 meq PO DAILY Furosemide [Lasix] 40 mg PO Q48H Discharge Medication List Aspirin EC [Ecotrin] 325 mg PO DAILY 08/20/21 [History] Clopidogrel [Plavix] 75 mg PO DAILY 08/20/21 [History] Losartan [Cozaar] 25 mg PO HS 08/20/21 [History] Metoprolol Tartrate [Lopressor] 50 mg PO BID 08/20/21 [History] allopurinoL [Zyloprim] 100 mg PO DAILY 08/20/21 [History] Atorvastatin [Lipitor] 40 mg PO HS #30 tab 08/22/21 [Rx] Follow up Appointment(s)/Referral(s): Nayeli Cavazos DO [Primary Care Provider] - 1-2 days Discharge Disposition: HOME SELF-CARE
== END 2021-08-22 11:36 | disposition home or self-care (01) ==
LOC: EC 17:34 → 6NMEDSUR 21:52 → OBSVTOIN 08-21 11:19 → INTOOBSV 08-21 11:19 → UNDODISIN 08-22 11:36
PROVIDERS: ADMIT Internal Medicine; ATTEND Internal Medicine
DX: A08.4 Viral intestinal infection, unspecified (principal); E87.1 Hypo-osmolality and hyponatremia; N17.9 Acute kidney failure, unspecified; E86.0 Dehydration; E86.1 Hypovolemia; I95.9 Hypotension, unspecified; I25.10 Atherosclerotic heart disease of native coronary artery without angina pectoris; I11.0 Hypertensive heart disease with heart failure; I50.9 Heart failure, unspecified; E78.5 Hyperlipidemia, unspecified; R73.03 Prediabetes; S81.802A Unspecified open wound, left lower leg, initial encounter; E66.9 Obesity, unspecified; Z68.39 Body mass index [BMI] 39.0-39.9, adult; Z20.822 Contact with and (suspected) exposure to COVID-19; Z79.02 Long term (current) use of antithrombotics/antiplatelets; Z79.82 Long term (current) use of aspirin; Z79.899 Other long term (current) drug therapy; Z90.49 Acquired absence of other specified parts of digestive tract; Z95.5 Presence of coronary angioplasty implant and graft; Z89.022 Acquired absence of left finger(s); Z98.890 Other specified postprocedural states
CPT/HCPCS: 96361 ×2; 96374; 99285; 36415; 93005; 80053; 80048 ×2; 83605; 85025 ×2; 81001; 87040; 87636; 71045; G0378 ×3; J2405; 96360

== ENCOUNTER 2022-01-16 04:35 | Observation (INO) | payer BC ==
[2022-01-16] MEDS ORDERED: PANTOPRAZOLE 40 MG/10 ML VIAL IVP STA (05:08)
[2022-01-16] MEDS ORDERED: ONDANSETRON 4 MG/2 ML VIAL IVP STA (05:08)
[2022-01-16] MEDS ORDERED: SODIUM CHLORIDE 0.9% 500 ML 500 ML IV STA (05:08)
[2022-01-16 05:17] LABS: Basophils % (A) 0 %; Eosinophils % (A) 0 %; HGB 10.7 gm/dL (11.4-16.0); Lymphocytes # (A) 1.2 k/uL (1.0-4.8); Lymphocytes % (A) 13 %; MCH 26.3 pg (25.0-35.0); MCHC 32.5 g/dL (31.0-37.0); Mean Platelet Volume 9.6; Monocytes # (A) 0.3 k/uL (0-1.0); Monocytes % (A) 3 %; Neutrophils # (A) 7.9 k/uL (1.3-7.7); Neutrophils % (A) 83 %; Platelet Count 212 k/uL (150-450); RBC 4.07 m/uL (3.80-5.40); RDW 14.9 % (11.5-15.5); WBC 9.5 k/uL (3.8-10.6)
--- NOTE | 2022-01-16 05:20 | ED ---
GI Bleed HPI - General Chief complaint: GI Bleed Stated complaint: GI Bleed Time Seen by Provider: 01/16/22 05:01 Source: patient, family Mode of arrival: wheelchair Limitations: no limitations - History of Present Illness Initial comments: This patient is a 61-year-old woman who presents to be evaluated for gastrointestinal bleeding. She states she had been at work and then she arrived home around 3 PM having some vomiting with coffee-ground emesis and having some dark bowel movements. She states she has had multiple rounds of vomiting and now she is feeling somewhat lightheaded if she stands up. Patient denies abdominal pain stating her stomach just feels upset but there is no true pain. Patient does take Plavix. MD complaint: coffee ground emesis, melena Onset/Timin -: hour(s) Radiation: none Severity scale (1-10): 0 Improves with: none Worsens with: none Associated Symptoms: denies other symptoms - Related Data Home Medications Medication Instructions Recorded Confirmed Losartan [Cozaar] 25 mg PO HS 08/20/21 01/16/22 Metoprolol Tartrate [Lopressor] 50 mg PO BID 08/20/21 01/16/22 allopurinoL [Zyloprim] 100 mg PO DAILY 08/20/21 01/16/22 Potassium Chloride [Klor-Con 20] 20 meq PO DAILY 01/16/22 01/16/22 Simvastatin [Zocor] 80 mg PO HS 01/16/22 01/16/22 Previous Rx's Medication Instructions Recorded Pantoprazole Sodium [Protonix] 40 mg PO BID #60 tab 01/17/22 Allergies Allergy/AdvReac Type Severity Reaction Status Date / Time No Known Allergies Allergy Verified 01/16/22 07:25 Review of Systems ROS Statement: Those systems with pertinent positive or pertinent negative responses have been documented in the HPI. ROS Other: All systems not noted in ROS Statement are negative. Constitutional: Denies: fever, chills Respiratory: Denies: cough, dyspnea Cardiovascular: Denies: chest pain, palpitations, edema, syncope Gastrointestinal: Reports: nausea, vomiting, diarrhea, hematemesis, melena. Denies: constipation, hematochezia Genitourinary: Denies: dysuria, hematuria Musculoskeletal: Denies: back pain Skin: Denies: rash Neurological: Denies: headache, weakness Past Medical History Past Medical History: Coronary Artery Disease (CAD), Chest Pain / Angina, Heart Failure, Hyperlipidemia, Hypertension History of Any Multi-Drug Resistant Organisms: None Reported Past Surgical History: Bowel Resection, Cholecystectomy, Ear Surgery, Heart Catheterization, Heart Catheterization With Stent Additional Past Surgical History / Comment(s): cyst removal, left fourth digit amputation Past Anesthesia/Blood Transfusion Reactions: No Reported Reaction Date of Last Stent Placement:: 2004 Past Psychological History: No Psychological Hx Reported Smoking Status: Never smoker Past Alcohol Use History: None Reported Past Drug Use History: None Reported General Exam Limitations: no limitations General appearance: alert, in no apparent distress Head exam: Present: atraumatic, normocephalic Eye exam: Present: normal appearance. Absent: scleral icterus, conjunctival injection Neck exam: Present: normal inspection Respiratory exam: Present: normal lung sounds bilaterally. Absent: respiratory distress, wheezes, rales, rhonchi, stridor Cardiovascular Exam: Present: regular rate, normal rhythm, normal heart sounds. Absent: systolic murmur, diastolic murmur, rubs, gallop GI/Abdominal exam: Present: soft. Absent: distended, tenderness, guarding, rebound, rigid, mass Extremities exam: Present: normal inspection, normal capillary refill. Absent: pedal edema, calf tenderness Back exam: Present: normal inspection. Absent: CVA tenderness (R), CVA tenderness (L) Neurological exam: Present: alert Skin exam: Present: warm, dry, intact, normal color. Absent: rash Course Vital Signs 01/16/22 01/16/22 01/16/22 04:37 06:14 07:31 Temperature 97.9 F 98.8 F Pulse Rate 104 H 87 96 Respiratory 24 18 18 Rate Blood Pressure 123/73 116/71 114/76 O2 Sat by Pulse 99 96 Oximetry Medical Decision Making - Lab Data Result diagrams: 01/17/22 11:26 01/16/22 05:07 Lab Results 01/16/22 01/16/22 01/16/22 Range/Units 05:07 05:07 05:07 WBC 9.5 (3.8-10.6) k/uL RBC 4.07 (3.80-5.40) m/uL Hgb 10.7 L (11.4-16.0) gm/dL Hct 33.0 L (34.0-46.0) % MCV 81.0 (80.0-100.0) fL MCH 26.3 (25.0-35.0) pg MCHC 32.5 (31.0-37.0) g/dL RDW 14.9 (11.5-15.5) % Plt Count 212 (150-450) k/uL MPV 9.6 Neutrophils % 83 % Lymphocytes % 13 % Monocytes % 3 % Eosinophils % 0 % Basophils % 0 % Neutrophils # 7.9 H (1.3-7.7) k/uL Lymphocytes # 1.2 (1.0-4.8) k/uL Monocytes # 0.3 (0-1.0) k/uL Eosinophils # 0.0 (0-0.7) k/uL Basophils # 0.0 (0-0.2) k/uL PT 11.1 (9.0-12.0) sec INR 1.0 (<1.2) APTT 21.3 L (22.0-30.0) sec Sodium 137 (137-145) mmol/L Potassium 4.7 (3.5-5.1) mmol/L Chloride 107 (98-107) mmol/L Carbon Dioxide 23 (22-30) mmol/L Anion Gap 7 mmol/L BUN 58 H (7-17) mg/dL Creatinine 0.91 (0.52-1.04) mg/dL Est GFR (CKD-EPI)AfAm 79 (>60 ml/min/1.73 sqM) Est GFR (CKD-EPI)NonAf 68 (>60 ml/min/1.73 sqM) Glucose 209 H (74-99) mg/dL Plasma Lactic Acid Otto (0.7-2.0) mmol/L Calcium 9.0 (8.4-10.2) mg/dL Total Bilirubin 0.7 (0.2-1.3) mg/dL AST 23 (14-36) U/L ALT 18 (4-34) U/L Alkaline Phosphatase 63 (38-126) U/L Troponin I (0.000-0.034) ng/mL Total Protein 6.7 (6.3-8.2) g/dL Albumin 3.6 (3.5-5.0) g/dL Blood Type Blood Type Confirm Blood Type Recheck Bld Type Recheck Status Antibody Screen Spec Expiration Date 01/16/22 01/16/22 01/16/22 Range/Units 05:07 05:07 05:07 WBC (3.8-10.6) k/uL RBC (3.80-5.40) m/uL Hgb (11.4-16.0) gm/dL Hct (34.0-46.0) % MCV (80.0-100.0) fL MCH (25.0-35.0) pg MCHC (31.0-37.0) g/dL RDW (11.5-15.5) % Plt Count (150-450) k/uL MPV Neutrophils % % Lymphocytes % % Monocytes % % Eosinophils % % Basophils % % Neutrophils # (1.3-7.7) k/uL Lymphocytes # (1.0-4.8) k/uL Monocytes # (0-1.0) k/uL Eosinophils # (0-0.7) k/uL Basophils # (0-0.2) k/uL PT (9.0-12.0) sec INR (<1.2) APTT (22.0-30.0) sec Sodium (137-145) mmol/L Potassium (3.5-5.1) mmol/L Chloride (98-107) mmol/L Carbon Dioxide (22-30) mmol/L Anion Gap mmol/L BUN (7-17) mg/dL Creatinine (0.52-1.04) mg/dL Est GFR (CKD-EPI)AfAm (>60 ml/min/1.73 sqM) Est GFR (CKD-EPI)NonAf (>60 ml/min/1.73 sqM) Glucose (74-99) mg/dL Plasma Lactic Acid Otto 1.9 (0.7-2.0) mmol/L Calcium (8.4-10.2) mg/dL Total Bilirubin (0.2-1.3) mg/dL AST (14-36) U/L ALT (4-34) U/L Alkaline Phosphatase (38-126) U/L Troponin I 0.015 (0.000-0.034) ng/mL Total Protein (6.3-8.2) g/dL Albumin (3.5-5.0) g/dL Blood Type B Positive Blood Type Confirm Blood Type Recheck No Previous Record Bld Type Recheck Status CABO Indicated Antibody Screen NEGATIVE Spec Expiration Date 01/19/2022 - 230601/16/22 Range/Units 05:09 WBC (3.8-10.6) k/uL RBC (3.80-5.40) m/uL Hgb (11.4-16.0) gm/dL Hct (34.0-46.0) % MCV (80.0-100.0) fL MCH (25.0-35.0) pg MCHC (31.0-37.0) g/dL RDW (11.5-15.5) % Plt Count (150-450) k/uL MPV Neutrophils % % Lymphocytes % % Monocytes % % Eosinophils % % Basophils % % Neutrophils # (1.3-7.7) k/uL Lymphocytes # (1.0-4.8) k/uL Monocytes # (0-1.0) k/uL Eosinophils # (0-0.7) k/uL Basophils # (0-0.2) k/uL PT (9.0-12.0) sec INR (<1.2) APTT (22.0-30.0) sec Sodium (137-145) mmol/L Potassium (3.5-5.1) mmol/L Chloride (98-107) mmol/L Carbon Dioxide (22-30) mmol/L Anion Gap mmol/L BUN (7-17) mg/dL Creatinine (0.52-1.04) mg/dL Est GFR (CKD-EPI)AfAm (>60 ml/min/1.73 sqM) Est GFR (CKD-EPI)NonAf (>60 ml/min/1.73 sqM) Glucose (74-99) mg/dL Plasma Lactic Acid Otto (0.7-2.0) mmol/L Calcium (8.4-10.2) mg/dL Total Bilirubin (0.2-1.3) mg/dL AST (14-36) U/L ALT (4-34) U/L Alkaline Phosphatase (38-126) U/L Troponin I (0.000-0.034) ng/mL Total Protein (6.3-8.2) g/dL Albumin (3.5-5.0) g/dL Blood Type Blood Type Confirm B Positive Blood Type Recheck Bld Type Recheck Status Antibody Screen Spec Expiration Date Disposition Clinical Impression: Gastrointestinal hemorrhage Disposition: ADMITTED IP TO THIS HOSP Condition: Good
[2022-01-16 05:28] LABS: Albumin 3.6 g/dL (3.5-5.0); Potassium 4.7 mmol/L (3.5-5.1); Total Bilirubin 0.7 mg/dL (0.2-1.3); Total Protein 6.7 g/dL (6.3-8.2)
[2022-01-16 05:31] LABS: Prothrombin Time 11.1 sec (9.0-12.0)
[2022-01-16 05:32] LABS: Partial Thromboplastin Time 21.3 sec (22.0-30.0)
[2022-01-16] MEDS ORDERED: NALOXONE 0.4 MG/ML 1 ML VIAL IV PRN (07:02)
--- NOTE | 2022-01-16 08:58 | P.GSCN ---
History of Present Illness Consult date: 01/16/22 History of present illness: CHIEF COMPLAINT: Coffee-ground emesis and black stools HISTORY OF PRESENT ILLNESS: This is a 77-year-old female who presented to the hospital with complaints of 5 episodes of coffee-ground emesis and having black stools that started yesterday. Patient reports that he came suddenly. She has been taking Aleve almost daily at home with Plavix and aspirin. Her last dose of Plavix was yesterday. Patient reports that she had some lower abdominal pain that started after the vomiting. She's never had any history of peptic ulcers or GI bleed in the past. Past surgical history includes a Karel-en-Y in 1998. Patient reports her last episode of vomiting and bowel movement was this morning and they were both black. PAST MEDICAL HISTORY: Coronary artery disease with cardiac stents last placed in 2008, heart failure, hyperlipidemia, hypertension PAST SURGICAL HISTORY: Karel-en-Y, bowel resection, cholecystectomy MEDICATIONS: See list. ALLERGIES: See list. SOCIAL HISTORY: No illicit drug use. REVIEW OF SYSTEMS: CONSTITUTIONAL: Denies fever or chills. HEENT: Denies blurred vision, vision changes, or eye pain. Denies hemoptysis CARDIOVASCULAR: Denies chest pain or pressure. RESPIRATORY: No shortness of breath. GASTROINTESTINAL: See HPI for pertinent findings HEMATOLOGIC: Denies bleeding disorders. GENITOURINARY: Denies any blood in urine or increased urinary frequency. SKIN: Denies pruitis. Denies rash. PHYSICAL EXAM: VITAL SIGNS: Reviewed GENERAL: Well-developed in no acute distress. HEENT: No sclera icterus. Extraocular movements grossly intact. Moist buccal mucosa. Head is atraumatic, normocephalic. No nasal drainage. ABDOMEN: Soft. Nondistended. Nontender NEUROLOGIC: Alert and oriented. Cranial nerves II through XII grossly intact. LABORATORY DATA: WBC 9.5 hemoglobin 10.7 platelets 212 INR 1.0 Sodium 137 potassium 4.7 creatinine 0.91 Lactic acid 1.9 LFTs normal IMAGING: ASSESSMENT: 1. Acute GI bleed with coffee-ground emesis and black stools PLAN: -Patient scheduled for EGD today with Dr. billy -Keep patient nothing by mouth -Continue IV Protonix -Continue IV fluids -Continue to hold aspirin and Plavix -Continue to hold Aleve Thank you for this consultation Physician [facility] Assessment Specialist note has been reviewed by physician. Signing provider agrees with the documented findings, assessment, and plan of care. Past Medical History Past Medical History: Coronary Artery Disease (CAD), Chest Pain / Angina, Heart Failure, Hyperlipidemia, Hypertension History of Any Multi-Drug Resistant Organisms: None Reported Past Surgical History: Bowel Resection, Cholecystectomy, Ear Surgery, Heart Catheterization, Heart Catheterization With Stent Additional Past Surgical History / Comment(s): cyst removal, left fourth digit amputation Past Anesthesia/Blood Transfusion Reactions: No Reported Reaction Date of Last Stent Placement:: 2004 Past Psychological History: No Psychological Hx Reported Smoking Status: Never smoker Past Alcohol Use History: None Reported Past Drug Use History: None Reported Medications and Allergies Home Medications Medication Instructions Recorded Confirmed Type Clopidogrel [Plavix] 75 mg PO DAILY 08/20/21 01/16/22 History Losartan [Cozaar] 25 mg PO HS 08/20/21 01/16/22 History Metoprolol Tartrate [Lopressor] 50 mg PO BID 08/20/21 01/16/22 History allopurinoL [Zyloprim] 100 mg PO DAILY 08/20/21 01/16/22 History Aspirin EC [Ecotrin Low Dose] 81 mg PO DAILY 01/16/22 01/16/22 History Potassium Chloride [Klor-Con 20] 20 meq PO DAILY 01/16/22 01/16/22 History Simvastatin [Zocor] 80 mg PO HS 01/16/22 01/16/22 History Allergies Allergy/AdvReac Type Severity Reaction Status Date / Time No Known Allergies Allergy Verified 01/16/22 07:25 Surgical - Exam Vital Signs Temp Pulse Resp BP Pulse Ox 97.9 F 104 H 24 123/73 99 01/16/22 04:37 01/16/22 04:37 01/16/22 04:37 01/16/22 04:37 01/16/22 04:37 Results - Labs 01/16/22 05:07 01/16/22 05:07 Abnormal Lab Results - Last 24 Hours (Table) 01/16/22 01/16/22 01/16/22 Range/Units 05:07 05:07 05:07 Hgb 10.7 L (11.4-16.0) gm/dL Hct 33.0 L (34.0-46.0) % Neutrophils # 7.9 H (1.3-7.7) k/uL APTT 21.3 L (22.0-30.0) sec BUN 58 H (7-17) mg/dL Glucose 209 H (74-99) mg/dL Diabetes panel 01/16/22 Range/Units 05:07 Sodium 137 (137-145) mmol/L Potassium 4.7 (3.5-5.1) mmol/L Chloride 107 (98-107) mmol/L Carbon Dioxide 23 (22-30) mmol/L BUN 58 H (7-17) mg/dL Creatinine 0.91 (0.52-1.04) mg/dL Glucose 209 H (74-99) mg/dL Calcium 9.0 (8.4-10.2) mg/dL AST 23 (14-36) U/L ALT 18 (4-34) U/L Alkaline Phosphatase 63 (38-126) U/L Total Protein 6.7 (6.3-8.2) g/dL Albumin 3.6 (3.5-5.0) g/dL Calcium panel 01/16/22 Range/Units 05:07 Calcium 9.0 (8.4-10.2) mg/dL Albumin 3.6 (3.5-5.0) g/dL Pituitary panel 01/16/22 Range/Units 05:07 Sodium 137 (137-145) mmol/L Potassium 4.7 (3.5-5.1) mmol/L Chloride 107 (98-107) mmol/L Carbon Dioxide 23 (22-30) mmol/L BUN 58 H (7-17) mg/dL Creatinine 0.91 (0.52-1.04) mg/dL Glucose 209 H (74-99) mg/dL Calcium 9.0 (8.4-10.2) mg/dL Adrenal panel 01/16/22 Range/Units 05:07 Sodium 137 (137-145) mmol/L Potassium 4.7 (3.5-5.1) mmol/L Chloride 107 (98-107) mmol/L Carbon Dioxide 23 (22-30) mmol/L BUN 58 H (7-17) mg/dL Creatinine 0.91 (0.52-1.04) mg/dL Glucose 209 H (74-99) mg/dL Calcium 9.0 (8.4-10.2) mg/dL Total Bilirubin 0.7 (0.2-1.3) mg/dL AST 23 (14-36) U/L ALT 18 (4-34) U/L Alkaline Phosphatase 63 (38-126) U/L Total Protein 6.7 (6.3-8.2) g/dL Albumin 3.6 (3.5-5.0) g/dL
[2022-01-16] MEDS: SODIUM CHLORIDE 0.9% 1,000 ML IV SCH ×3 (09:17→19:19)
[2022-01-16] MEDS ORDERED: IV FLUID CONTINUATION 1,000 ML IV ONE (13:54)
[2022-01-16] MEDS ORDERED: PROPOFOL 10 MG/ML 20 ML VIAL IV ONE (14:00)
[2022-01-16] MEDS ORDERED: LIDOCAINE 1% INJ 10MG/ML (20 ML MDV) ONE (14:00)
--- NOTE | 2022-01-16 14:22 | P.OP ---
Date of Procedure: 01/16/22 Preoperative Diagnosis: GI bleed Postoperative Diagnosis: Antral gastritis Previous evidence of gastric surgery with suture visible and stomach No active bleeding Procedure(s) Performed: EGD Anesthesia: MAC Surgeon: Adolfo Meneses Pathology: other (Gastritis) Condition: stable Disposition: PACU Description of Procedure: The patient's placed on the endoscopy table in the lateral position. She received IV sedation. The gastro-/oropharynx passed in the esophagus and then into the stomach. The patient had some sort of previous gastric surgery. The proximal stomach appeared to have previous surgery. There was a gastric suture seen at the GE junction. The scope was then placed into the small bowel. There is known to any upper GI bleed. The scope was brought back and was presumed to be the gastric antrum there was some mild inflammation. A biopsies was performed. The scope was then brought back. The distorted gastric anatomy was visualized. The GE junction was at 40 cm. The distal esophagus appeared normal. The proximal esophagus appeared normal. Scope withdrawn for patient. There is known to any active GI bleed. There was some presumed gastritis. This was biopsied. Patient tolerated this well.
[2022-01-16 14:46] LABS: HCT 27.1 % (34.0-46.0); HGB 9.3 gm/dL (11.4-16.0); MCH 26.6 pg (25.0-35.0); MCHC 34.5 g/dL (31.0-37.0); MCV 77.2 fL (80.0-100.0); Mean Platelet Volume 8.9; Microcytosis Slight; Platelet Count 198 k/uL (150-450); RBC 3.51 m/uL (3.80-5.40); RDW 15.7 % (11.5-15.5); WBC 9.9 k/uL (3.8-10.6)
--- NOTE | 2022-01-16 14:55 | P.HPIM ---
History of Present Illness H&P Date: 01/16/22 Chief Complaint: Coffee-ground emesis and melanotic stool Patient is a 61-year-old female with a past medical history of coronary artery disease with PCI (2008), hyperlipidemia, hypertension, gout who presents to the ED with coffee-colored emesis and melanotic stool. Patient states that she was taking Aleve twice a day for the past month due to pain in her lower extremities. In the ED patient's hemoglobin was 10.7 and repeat hemoglobin 9.3. Patient had an EGD done by general surgery that showed gastritis with no active bleeding. Patient denies any nausea vomiting or abdominal pain. Review of Systems 10 ROS reviewed and are negative except as noted in HPI Past Medical History Past Medical History: Coronary Artery Disease (CAD), Chest Pain / Angina, Heart Failure, Hyperlipidemia, Hypertension History of Any Multi-Drug Resistant Organisms: None Reported Past Surgical History: Bowel Resection, Cholecystectomy, Ear Surgery, Heart Catheterization, Heart Catheterization With Stent Additional Past Surgical History / Comment(s): cyst removal, left fourth digit amputation Past Anesthesia/Blood Transfusion Reactions: No Reported Reaction Date of Last Stent Placement:: 2004 Past Psychological History: No Psychological Hx Reported Smoking Status: Never smoker Past Alcohol Use History: None Reported Past Drug Use History: None Reported Medications and Allergies Home Medications Medication Instructions Recorded Confirmed Type Clopidogrel [Plavix] 75 mg PO DAILY 08/20/21 01/16/22 History Losartan [Cozaar] 25 mg PO HS 08/20/21 01/16/22 History Metoprolol Tartrate [Lopressor] 50 mg PO BID 08/20/21 01/16/22 History allopurinoL [Zyloprim] 100 mg PO DAILY 08/20/21 01/16/22 History Aspirin EC [Ecotrin Low Dose] 81 mg PO DAILY 01/16/22 01/16/22 History Potassium Chloride [Klor-Con 20] 20 meq PO DAILY 01/16/22 01/16/22 History Simvastatin [Zocor] 80 mg PO HS 01/16/22 01/16/22 History Allergies Allergy/AdvReac Type Severity Reaction Status Date / Time No Known Allergies Allergy Verified 01/16/22 07:25 Physical Exam Osteopathic Statement: *. No significant issues noted on an osteopathic structural exam other than those noted in the History and Physical/Consult. Vitals: Vital Signs Temp Pulse Pulse Resp BP BP Pulse Ox 01/16/22 08:12 98.2 F 102 H 16 145/87 99 01/16/22 07:31 98.8 F 96 18 114/76 01/16/22 06:14 87 18 116/71 96 01/16/22 04:37 97.9 F 104 H 24 123/73 99 Intake and Output 01/15/22 01/16/22 01/16/22 22:59 06:59 14:59 Intake Total 675 Balance 675 Intake: IV 300 Intake, IV Titration 375 Amount Sodium Chloride 0.9% 1, 375 000 ml @ 75 mls/hr IV . [id number] VALENTINE Rx#:[id number] Other: Weight 108.862 kg 108.862 kg General: [Alert and oriented, well nourished, no acute distress]. Eye: [PERRL, EOMI, normal conjunctiva]. HENT: [Normocephalic, clear tympanic membranes, normal hearing, moist oral mucosa, no scleral icterus, no sinus tenderness]. Neck: [Supple, non-tender, no carotid bruits, no JVD, no lymphadenopathy]. Lungs: [Clear to auscultation and percussion, non-labored respiration]. Heart: [Normal rate, regular rhythm, no murmur, gallop or edema]. Abdomen: [Soft, non-tender, non-distended, normal bowel sounds, no masses]. Musculoskeletal: [Normal range of motion and strength, no tenderness or swelling]. Skin: [Skin is warm, dry and pink, no rashes or lesions]. Neurologic: [Awake, alert, and oriented X3, CN II-XII intact]. Psychiatric: [Cooperative, appropriate mood and affect]. Results CBC & Chem 7: 01/16/22 14:34 01/16/22 05:07 Labs: Abnormal Lab Results - Last 24 Hours (Table) 01/16/22 01/16/22 01/16/22 Range/Units 05:07 05:07 05:07 RBC (3.80-5.40) m/uL Hgb 10.7 L (11.4-16.0) gm/dL Hct 33.0 L (34.0-46.0) % MCV (80.0-100.0) fL RDW (11.5-15.5) % Neutrophils # 7.9 H (1.3-7.7) k/uL APTT 21.3 L (22.0-30.0) sec BUN 58 H (7-17) mg/dL Glucose 209 H (74-99) mg/dL 01/16/22 Range/Units 14:34 RBC 3.51 L (3.80-5.40) m/uL Hgb 9.3 L (11.4-16.0) gm/dL Hct 27.1 L (34.0-46.0) % MCV 77.2 L (80.0-100.0) fL RDW 15.7 H (11.5-15.5) % Neutrophils # (1.3-7.7) k/uL APTT (22.0-30.0) sec BUN (7-17) mg/dL Glucose (74-99) mg/dL Thrombosis Risk Factor Assmnt - Choose All That Apply Each Factor Represents 1 point: Obesity (BMI >25) Each Risk Factor Represents 2 Points: Age 61-74 years Thrombosis Risk Factor Assessment Total Risk Factor Score: 3 Thrombosis Risk Factor Assessment Level: Moderate Risk Assessment and Plan Assessment: Acute blood loss anemia Likely upper GI bleed -We'll hold aspirin and Plavix until cleared by general surgery. Since cardiac stents were placed more than a year ago will only need to resume Plavix. -Patient counseled on avoiding NSAIDs -EGD showed gastritis with no active bleeding -Resume IV Protonix -Trend hemoglobin every 6 hours Coronary disease status post PCI -Holding aspirin and Plavix secondary to above Hypertension -Resume metoprolol. Hold losartan for now Hyperlipidemia -Resume statin Gout -Resume allopurinol CODE STATUS:full code DVT prophylaxis: mechanical Discussed with: Patient, ER, rn Anticipated length of stay < than [address]: home
[2022-01-16 19:19] LABS: HGB 9.7 gm/dL (11.4-16.0); MCHC 33.4 g/dL (31.0-37.0); MCV 80.9 fL (80.0-100.0); Platelet Count 196 k/uL (150-450); RBC 3.58 m/uL (3.80-5.40); RDW 15.6 % (11.5-15.5); WBC 8.8 k/uL (3.8-10.6)
[2022-01-16] MEDS: METOPROLOL TARTRATE 50 MG TAB PO SCH (19:19)
[2022-01-16] MEDS ORDERED: ATORVASTATIN 40 MG TAB PO SCH (21:00)
[2022-01-17 01:09] LABS: HCT 24.5 % (34.0-46.0); MCH 26.7 pg (25.0-35.0); MCHC 32.9 g/dL (31.0-37.0); MCV 81.2 fL (80.0-100.0); Mean Platelet Volume 9.5; Platelet Count 191 k/uL (150-450); RBC 3.01 m/uL (3.80-5.40); RDW 15.8 % (11.5-15.5); WBC 7.5 k/uL (3.8-10.6)
[2022-01-17 01:17] LABS: HGB 8.1 gm/dL (11.4-16.0)
[2022-01-17 06:38] LABS: HCT 26.5 % (34.0-46.0); HGB 8.5 gm/dL (11.4-16.0); Hypochromasia Slight; MCH 26.6 pg (25.0-35.0); MCHC 32.1 g/dL (31.0-37.0); MCV 82.9 fL (80.0-100.0); Mean Platelet Volume 9.3; Platelet Count 162 k/uL (150-450); RDW 15.6 % (11.5-15.5); WBC 6.8 k/uL (3.8-10.6)
[2022-01-17 08:04] VITALS: BP 138/82; PULSE 83; RESP 18; TEMP 98
[2022-01-17] MEDS: SODIUM CHLORIDE 0.9% 1,000 ML IV SCH (08:18)
[2022-01-17] MEDS: METOPROLOL TARTRATE 50 MG TAB PO SCH (08:23)
[2022-01-17] MEDS ORDERED: PANTOPRAZOLE 40 MG/10 ML VIAL IV SCH (09:00)
[2022-01-17] MEDS ORDERED: allopurinoL 100 MG TAB PO SCH (09:00)
[2022-01-17 12:04] LABS: HCT 26.4 % (34.0-46.0); HGB 8.3 gm/dL (11.4-16.0); Hypochromasia Slight; MCH 26.6 pg (25.0-35.0); MCHC 31.6 g/dL (31.0-37.0); Mean Platelet Volume 8.7; Platelet Count 156 k/uL (150-450); RBC 3.14 m/uL (3.80-5.40); RDW 15.6 % (11.5-15.5); WBC 6.5 k/uL (3.8-10.6)
--- NOTE | 2022-01-17 12:28 | P.DS ---
Providers Date of admission: 01/16/22 07:02 Expected date of discharge: 01/17/22 Attending physician: Kasandra Salter DO Consults: 01/16/22 07:02 Consult Physician Routine Consulting Provider: Adolfo Meneses Consult Reason/Comments: GI Bleeding Do you want consulting provider notified?: Already Contacted Primary care physician: Nayeli Cavazos Hospital Course: Discharge Diagnosis: Acute blood loss anemia Likely upper GI bleed Coronary artery disease status post PCI Hypertension Hyperlipidemia Gout Hospital Course: Patient is a 61-year-old female with a past medical history of coronary artery disease with PCI (2008), hyperlipidemia, hypertension, gout who presents to the ED with coffee-colored emesis and melanotic stool. Patient states that she was taking Aleve twice a day for the past month due to pain in her lower extremities. In the ED patient's hemoglobin was 10.7 and repeat hemoglobin 9.3. Patient had an EGD done by general surgery that showed gastritis with no active bleeding. Patient was monitored overnight. In the morning patient's hemoglobin was stable. She denied any overt signs of bleeding. She was deemed stable for discharge. Patient will be discharged on Protonix twice a day. 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 Patient seen and examined at bedside.[] Vital signs reviewed and stable. General: [non toxic], [no distress], [appears at stated age] Derm: [warm], [dry] Head: [atraumatic], [normocephalic], [symmetric] Eyes: [EOMI], [no lid lag], [anicteric sclera] Mouth: [no lip lesion], [mucus membranes moist] Cardiovascular: [S1S2 reg], [no murmur], [positive posterior tibial pulse bilateral], Lungs: [CTA bilateral], [no rhonchi, no rales] , [no accessory muscle use] Abdominal: [soft], [ nontender to palpation], [no guarding], [no appreciable organomegaly] Ext: [no gross muscle atrophy], [no edema], [no contractures] Neuro: [ CN II-XI grossly intact], [no focal neuro deficits] Psych: [Alert], [oriented], [appropriate affect] A total of [33] minutes of time were spent preparing this complex discharge summary . Patient Condition at Discharge: Good Plan - Discharge Summary Discharge Rx Participant: No New Discharge Prescriptions: New Pantoprazole Sodium [Protonix] 40 mg PO BID #60 tab Continue Losartan [Cozaar] 25 mg PO HS Potassium Chloride [Klor-Con 20] 20 meq PO DAILY Simvastatin [Zocor] 80 mg PO HS allopurinoL [Zyloprim] 100 mg PO DAILY Metoprolol Tartrate [Lopressor] 50 mg PO BID Discontinued Clopidogrel [Plavix] 75 mg PO DAILY Aspirin EC [Ecotrin Low Dose] 81 mg PO DAILY Discharge Medication List Losartan [Cozaar] 25 mg PO HS 08/20/21 [History] Metoprolol Tartrate [Lopressor] 50 mg PO BID 08/20/21 [History] allopurinoL [Zyloprim] 100 mg PO DAILY 08/20/21 [History] Potassium Chloride [Klor-Con 20] 20 meq PO DAILY 01/16/22 [History] Simvastatin [Zocor] 80 mg PO HS 01/16/22 [History] Pantoprazole Sodium [Protonix] 40 mg PO BID #60 tab 01/17/22 [Rx] Follow up Appointment(s)/Referral(s): Nayeli Cavazos DO [Primary Care Provider] - 1-2 days Adolfo Meneses MD [STAFF PHYSICIAN] - 1 Week Discharge Disposition: HOME SELF-CARE
== END 2022-01-17 13:41 | disposition home or self-care (01) ==
LOC: EC 04:35 → 6NMEDSUR 07:02
PROVIDERS: ADMIT Internal Medicine; ATTEND Internal Medicine
DX: D62 Acute posthemorrhagic anemia (principal); K29.50 Unspecified chronic gastritis without bleeding; I11.0 Hypertensive heart disease with heart failure; I50.9 Heart failure, unspecified; E78.5 Hyperlipidemia, unspecified; M10.9 Gout, unspecified; K92.1 Melena; I25.10 Atherosclerotic heart disease of native coronary artery without angina pectoris; E66.9 Obesity, unspecified; Z68.38 Body mass index [BMI] 38.0-38.9, adult; Z95.5 Presence of coronary angioplasty implant and graft; Z98.0 Intestinal bypass and anastomosis status; Z90.49 Acquired absence of other specified parts of digestive tract; Z79.899 Other long term (current) drug therapy; Z79.02 Long term (current) use of antithrombotics/antiplatelets; Z79.82 Long term (current) use of aspirin; Z71.89 Other specified counseling
CPT/HCPCS: 96361; 96374; 96375; 99285; 36415; 86900; 86901; 88305; 80053; 83605; 84484; 85025; 85027 ×2; 85610; 85730; 86850; 43239; G0378 ×2; J2405; J2001; J2704; C9113 ×2